=== PATIENT | female | born 2000 | race Caucasian/White ===

== ENCOUNTER 2023-01-17 13:41 | Emergency (ER) | payer MEDICAID, SELFPAY ==
[2023-01-17 13:51] VITALS: BP 109/61; PULSE 87; RESP 16; TEMP 36.7; O2SAT 100
--- NOTE | 2023-01-17 14:11 | ED.FEMALEGU ---
HPI - Female Genitourinary General Chief complaint: Nausea/Vomiting/Diarrhea Stated complaint: Weakness/Fatique/Dehydrated Time Seen by Provider: 01/17/23 13:55 Source: patient Mode of arrival: ambulatory Limitations: no limitations History of Present Illness HPI Narrative: Jo is a 22-year-old female patient presenting to the clinic today with complaints of weakness, fatigue, possible dehydration, nausea, vomiting, and vaginal discharge. Patient reports that she is 11 weeks and has been having a lot of nausea and vomiting. She denies any fever or chills. States she that she is having some burning with urination and discomfort with wiping. Is having a lot of yellow vaginal discharge. Related Data Home Medications Medication Instructions Recorded Confirmed No Home Medications 01/17/23 01/17/23 Allergies Allergy/AdvReac Type Severity Reaction Status Date / Time No Known Allergies Allergy Verified 01/17/23 14:03 Review of Systems Review of Systems: Pertinent positives per HPI. Patient denies any fever, chills, rash, headache, visual changes, dizziness, cough, shortness of breath, chest pain, palpitations, nausea, vomiting, diarrhea, constipation, abdominal pain, or any urinary issues. PMFSH Comments At the time of my signature, I reviewed and agree with the nursing past medical, surgical, social, and family history. There is no relevant family history pertinent to the patient complaint. Exam Narrative: General: Well-developed, well nourished, in no apparent distress Head: Normocephalic, atraumatic Eyes: Pupils equally round and reactive to light bilaterally, EOM intact, sclera and conjunctive clear, no discharge, lids normal Ears: TMs intact and clear, ear canals clear, no drainage, grossly hearing normal. Nose: Nares patent, no discharge, no inflammation, no sinus tenderness. Mouth: Oral pharynx without lesions or masses, good dentition, MMM. Neck: Supple, trachea midline, no enlargement of anterior or posterior cervical nodes, no thyroid masses or goiter palpable. Cardio: Regular rate and rhythm, s1 and s2 normal, no murmur appreciated. Resp: Clear to auscultation bilaterally, no rhonchi, rales, wheezing or rubs General: Well-developed, well nourished, in no apparent distress. Abdomen: Soft, pliable, bowel sounds present in all quadrants, mildly tender to palpation over the suprapubic bladder, no organomegly, no CVAT tenderness. Course Course Emergency Course: Portions of this record may have been created with voice recognition software. Level of Care: Express Care Visit Vital Signs Vital signs: Vital Signs Temperature 36.7 C 01/17/23 13:51 Pulse Rate 87 01/17/23 13:51 Respiratory Rate 16 01/17/23 13:51 Blood Pressure 109/61 01/17/23 13:51 Pulse Oximetry 100 01/17/23 13:51 Oxygen Delivery Room Air 01/17/23 13:51 Temperature 36.7 C 01/17/23 13:51 Pulse Rate 87 01/17/23 13:51 Respiratory Rate 16 01/17/23 13:51 Blood Pressure 109/61 01/17/23 13:51 Pulse Oximetry 100 01/17/23 13:51 Oxygen Delivery Room Air 01/17/23 13:51 Vital signs reviewed Transfer Transfered to: [facility] Transportation: Other (Private car) Transfer rationale: Dehydration, vaginal discharge, 11 weeks , nausea and vomiting, weakness Accepting physician: Dr. Sanchez Transfer comments: via private car MDM - Female Genitourinary MDM Narrative Medical decision making narrative: At the time of visit patient is resting comfortably on the exam table. Recommend transfer to the ED for fluids, labs, and any further evaluation per ER provider. Patient is agreeable to this. Contacted Dr. Sanchez at [facility] and report was given for continuity care and she accepts patient for transfer. Patient will be transferred via private car Differential Diagnosis Differential diagnosis: Likely urinary tract infection, bacterial vaginosis, cystitis and other (Sexual
== END 2023-01-17 14:11 | disposition short-term general hospital (02) ==
PROVIDERS: Emergency Provider Nurse Practitioner Family
DX: O21.9 Vomiting of pregnancy, unspecified (principal); Z3A.11 11 weeks gestation of pregnancy; O99.281 Endocrine, nutritional and metabolic diseases complicating pregnancy, first trimester; E86.0 Dehydration; O99.891 Other specified diseases and conditions complicating pregnancy; N89.8 Other specified noninflammatory disorders of vagina; R53.1 Weakness
CPT/HCPCS: 81003; 87086; 87088; 87147; 99203; G0463

== ENCOUNTER 2023-01-17 14:43 | Emergency (ER) | payer MEDICAID, SELFPAY ==
[2023-01-17 14:50] VITALS: BP 116/46; PULSE 96; RESP 16; TEMP 36.6; O2SAT 100
--- NOTE | 2023-01-17 15:04 | ED.NAVMDI ---
HPI - Nausea/Vomiting/Diarrhea General Chief complaint: Nausea/Vomiting/Diarrhea Stated complaint: 11 weeks / n/v Time Seen by Provider: 01/17/23 14:55 History of Present Illness HPI Narrative: Pt is 11 weeks and has been having persistent vomiting numerous times a day. Pt has ketones in her urine per OB and was sent to ER for IVF. Pt has no vaginal bleeding or urinary symptoms. Related Data Allergies Allergy/AdvReac Type Severity Reaction Status Date / Time No Known Allergies Allergy Verified 01/17/23 15:14 Review of Systems Review of Systems: All systems reviewed & are unremarkable except as noted in HPI and below Exam Const: General: healthy appearing and no acute distress Nutritional Appearance: well nourished Orientation/consciousness: patient oriented x3 Limitations: no limitations HENMT: Mouth: Yes dry mucous membranes Eyes: Conjunctivae: conjunctivae normal Pupils: Equal, round and reactive pupils present EOM: EOMs intact bilaterally Neck: Neck: normal visual inspection and no lymphadenopathy Resp: Effort & Inspection: normal respiratory effort Auscultation: clear to auscultation bilaterally Cardio: Rate: regular rate Rhythm: regular rhythm GI: GI Palp: Yes Soft to palpation Auscultation: normal bowel sounds Skin: General skin exam: normal color Wounds: no wounds Neuro: General: patient oriented x3, moves all extremities and no focal motor deficits Speech: normal speech Extrem: General: normal to inspection and no clubbing, cyanosis or edema Psych: Mental Status: mental status grossly normal Affect: normal affect Attitude: cooperative Course Vital Signs Vital signs: Vital Signs Temperature 98 F 01/17/23 14:50 Pulse Rate 96 01/17/23 14:50 Respiratory Rate 16 01/17/23 14:50 Blood Pressure 116/46 L 01/17/23 14:50 Pulse Oximetry 100 01/17/23 14:50 Temperature 98 F 01/17/23 14:50 Pulse Rate 94 01/17/23 16:42 Respiratory Rate 18 01/17/23 16:42 Blood Pressure 101/69 01/17/23 16:42 Pulse Oximetry 99 01/17/23 16:42 MDM - Nausea/Vomiting/Diarrhea MDM Narrative Medical decision making narrative: pt likely dehydrated from hyperemesis gravidarum needs IVF and reglan. labs look fine pt feels much better after fluids and reglan and wants to go home Lab Data 01/17/23 15:12 01/17/23 15:12 Labs: Lab Results 01/17/23 Range/Units 15:12 WBC 11.0 H (4.5-10.0) K/mm3 RBC 4.46 (4.2-5.4) M/mm3 Hgb 11.4 L (12.0-15.0) g/dL Hct 35.7 L (37.0-47.0) % MCV 80.0 (80-100) fl MCH 25.6 L (26-34) pg MCHC 31.9 L (32-36) g/dl RDW 15.3 H (11.5-14.5) % Plt Count 352 (150-375) k/mm3 MPV 10.2 (7.4-10.4) fl Immature Gran % (Auto) 0.4 (0-0.5) % Neut % (Auto) 74.8 H (45.5-73.1) % Lymph % (Auto) 19.2 (18.3-44.2) % Overton % (Auto) 3.6 (2.6-8.5) % Eos % (Auto) 1.5 (0-4.4) % Baso % (Auto) 0.5 (0.2-1.2) % Lymph # (Auto) 2.12 (0.9-3.2) K/mm3 Overton # (Auto) 0.4 (0.1-0.6) K/mm3 Eos # (Auto) 0.2 (0-0.3) K/mm3 Baso # (Auto) 0.1 (0.0-0.1) K/mm3 Abs Immat Gran (auto) 0.04 H (0.00-0.031) K/mm3 Absolute Neuts (auto) 8.2 H (1.3-6.7) K/mm3 Absolute Nucleated RBC 0.0 (0.0-0.012) K/mm3 Nucleated RBC % 0.0 (0.0-0.2) % Sodium 134 L (137-145) mmol/L Potassium 3.3 L (3.4-5.0) mmol/L Chloride 103 (98-107) mmol/L Carbon Dioxide 23 (22-30) mmol/L Anion Gap 8 (8-16) mmol/L BUN 7 (7-17) mg/dL Creatinine 0.40 L (0.7-1.0) mg/dL Estim Creat Clear Calc 171 ml/min Estimated GFR > 60 (59 - ) Glucose 104 (65-110) mg/dL Calcium 8.8 (8.4-10.2) mg/dL Total Bilirubin 0.4 (0.2-1.3) mg/dL AST 19 (14-36) U/L ALT 14 (6-35) U/L Alkaline Phosphatase 59 (38-126) U/L Total Protein 7.0 (6.3-8.2) g/dL Albumin 4.3 (3.5-5.1) g/dL Discharge Plan Discharge Clinical Impression: Hyperemesis gravidarum Patient Disposition: Home, Self-Care
[2023-01-17] MEDS: METOCLOPRAMIDE HCL INJ 10 MG/2 ML VIAL IV PUSH (15:18)
[2023-01-17] MEDS: DEXTROSE 5%/LACTATED RINGERS 1,000 ML 999 ML IV CONT (15:19)
[2023-01-17 15:24] LABS: Basophils Absolute Auto 0.1 K/mm3 (0.0-0.1); Basophils Percent Auto 0.5 % (0.2-1.2); Eosinophils Absolute Auto 0.2 K/mm3 (0-0.3); Eosinophils Percent Auto 1.5 % (0-4.4); Hematocrit 35.7 % (37.0-47.0); Hemoglobin 11.4 g/dL (12.0-15.0); Immature Granulocyte Absolute 0.04 K/mm3 (0.00-0.031); Immature Granulocyte Percent A 0.4 % (0-0.5); Lymphocytes Absolute Auto 2.12 K/mm3 (0.9-3.2); Lymphocytes Percent Auto 19.2 % (18.3-44.2); Mean Corpuscular HGB Conc 31.9 g/dl (32-36); Mean Corpuscular Hemoglobin 25.6 pg (26-34); Mean Platelet Volume 10.2 fl (7.4-10.4); Monocytes Absolute Auto 0.4 K/mm3 (0.1-0.6); Monocytes Percent Auto 3.6 % (2.6-8.5); Neutrophils Absolute Auto 8.2 K/mm3 (1.3-6.7); Neutrophils Percent Auto 74.8 % (45.5-73.1); Platelet Count Result 352 k/mm3 (150-375); Red Blood Count 4.46 M/mm3 (4.2-5.4); Red Cell Distribution Width 15.3 % (11.5-14.5)
[2023-01-17 15:37] LABS: Alanine Aminotransferase 14 U/L (6-35); Albumin Level 4.3 g/dL (3.5-5.1); Alkaline Phosphatase 59 U/L (38-126); Anion Gap 8 mmol/L (8-16); Aspartate Amino Transferase 19 U/L (14-36); Bilirubin,Total 0.4 mg/dL (0.2-1.3); Blood Urea Nitrogen 7 mg/dL (7-17); Calcium 8.8 mg/dL (8.4-10.2); Carbon Dioxide 23 mmol/L (22-30); Chloride 103 mmol/L (98-107); Estimated CRCL calculation 171 ml/min; Estimated Glomerular Filt Rate > 60; Glucose 104 mg/dL (65-110); Potassium 3.3 mmol/L (3.4-5.0); Sodium 134 mmol/L (137-145)
[2023-01-17 16:42] VITALS: BP 101/69; PULSE 94; RESP 18; O2SAT 99
== END 2023-01-17 16:46 | disposition home or self-care (01) ==
PROVIDERS: Emergency Provider Emergency Medicine
DX: O21.0 Mild hyperemesis gravidarum (principal); Z3A.11 11 weeks gestation of pregnancy
CPT/HCPCS: 36415; 80053; 85025; 96361; 96374; 99284; J2765; J7121

== ENCOUNTER 2023-03-09 12:58 | Emergency (ER) | payer MEDICAID, SELFPAY ==
[2023-03-09 13:08] VITALS: BP 113/58; PULSE 89; RESP 16; TEMP 36.8; O2SAT 100
--- NOTE | 2023-03-09 13:30 | ED.DIZZY ---
HPI - Dizziness General Chief Complaint: Dizziness Stated Complaint: Dizziness/Blurried Vision Time Seen by Provider: 03/09/23 13:01 Source: patient Mode of arrival: ambulatory Limitations: no limitations History of Present Illness HPI Narrative: Patient is a 22-year-old female having frontal headache, intermittent blurred vision, and dizziness when moving around. Patient has not taken anything for her headache that she has had for 3 days. States she does not like to take medication when . Does occasionally take Zofran for nausea. States she did throw up this morning but she throws up every morning. Was seen for similar complaint 01/17. Denies any sycope, heart palpitations, weakness, numbness or tingling. Related Data Home Medications Medication Instructions Recorded Confirmed 03/09/23 ondansetron 4 mg disintegrating mg 03/09/23 tablet Allergies Allergy/AdvReac Type Severity Reaction Status Date / Time No Known Allergies Allergy Verified 03/09/23 13:06 Review of Systems Review of Systems: All systems reviewed & are unremarkable except as noted in HPI and below Constitutional: Constitutional: Denies body ache(s), Denies chills, Denies fatigue, Denies fever(s), Reports headache(s), Denies malaise and Denies weakness Eyes: Eyes: Reports blurry vision, Denies irritation and Denies loss of vision ENT: Denies otalgia, Reports headache(s), Denies nasal discharge, Denies sinus pain and Denies sore throat Cardiovascular: Cardiovascular: Denies chest pain, Denies irregular heart rhythm and Denies dyspnea Respiratory: Respiratory: Denies dyspnea Gastrointestinal: Gastrointestinal: Denies abdominal pain, Denies melena, Denies hematochezia, Denies diarrhea, Denies nausea and Denies vomiting Musculoskeletal: Musculoskeletal: Denies back pain, Denies myalgias and Denies arthralgias Integumentary/Breasts: Skin/Breast: Denies pruritus and Denies rash Neurologic: Reports dizziness, Denies syncope, Reports headache(s), Denies loss of vision, Denies numbness, Denies tingling, Denies paresthesias and Denies weakness Psychiatric: Psychiatric: Reports no additional psychiatric complaints Endocrine: Endocrine: Denies fatigue PMFSH Comments At time of signature, agree with nursing past medical, surgical, social and family history. There is no relevant family history pertinent to the presenting complaint. Exam Const: General: cooperative, healthy appearing, comfortable, no acute distress and well nourished Nutritional Appearance: well nourished Orientation/consciousness: patient oriented x3 Limitations: no limitations HENMT: Head: normal to inspection, normocephalic and atraumatic Ears: hearing grossly normal bilaterally and external ears normal Face/Nose/Sinus: Normal external nose present, normal facial exam and face symmetric Face and sinus: normal facial exam and face symmetric Mouth: Yes lip normal Eyes: General: appearance normal, both eyes and all related structures Alignment and Position: alignment normal and position normal Periorbital: periorbital findings normal Eyelids: eyelids normal Pupils: Equal, round and reactive pupils present EOM: EOMs intact bilaterally Neck: Neck: normal visual inspection, full ROM and supple Chest: Chest palpation & inspection: normal inspection of the chest Resp: Effort & Inspection: normal respiratory effort and able to speak in complete sentences Auscultation: clear to auscultation bilaterally, no crackles, no rales, no rhonchi and no wheezes Cardio: Rate: regular rate Rhythm: regular rhythm Heart sounds: S1 normal heart sound present and S2 normal heart sound present GI: Inspection: normal to inspection : General: Yes no CVA tenderness Skin: General skin exam: normal color and no rashes or lesions noted Neuro: General: patient oriented x3 and moves all extremities Cranial nerves: Yes Equal, round and reactive pupils present Speech: nor
[2023-03-09 13:41] VITALS: BP 103/50; PULSE 80
[2023-03-09 13:43] VITALS: BP 109/54; PULSE 80
[2023-03-09 13:45] VITALS: BP 111/51; PULSE 104
--- NOTE | 2023-03-09 14:02 | PC.NURSE ---
multiple ua attempts done by 2 rn with newe strips and unable to get results from [facility]. turner off aware. luekocytes visually immediately positive with every test. qc done x2.
--- NOTE | 2023-03-09 14:04 | PC.NURSE ---
ua results done manually glucose negative, biirubin negative, ketone negative, specific gravity 1.025, blood 1+, ph 6.0, protein +, uro 0.2, nitrite +, and leukocyte 3+
== END 2023-03-09 14:12 | disposition home or self-care (01) ==
PROVIDERS: Emergency Provider Nurse Practitioner Family
DX: O23.40 Unspecified infection of urinary tract in pregnancy, unspecified trimester (principal); N39.0 Urinary tract infection, site not specified; Z3A.00 Weeks of gestation of pregnancy not specified; O99.891 Other specified diseases and conditions complicating pregnancy; I95.1 Orthostatic hypotension; R51.9 Headache, unspecified; Z20.822 Contact with and (suspected) exposure to COVID-19
CPT/HCPCS: 81003; 87077; 87086; 87088; 87426; 87804; 99213; C9803; G0463

== ENCOUNTER 2023-04-15 17:10 | Emergency (ER) | payer MEDICAID, SELFPAY ==
--- NOTE | 2023-04-15 17:21 | ED.URI ---
HPI - URI/Sore Throat General Chief Complaint: Headache Stated Complaint: bodyaches,headache Time Seen by Provider: 04/15/23 18:00 Source: patient and RN notes reviewed Mode of arrival: ambulatory Limitations: no limitations History of Present Illness HPI Narrative: 22-year-old female who is 20 per weeks presents with concern for body aches, sweats, chills, headache, cough that started last night. She reports other members of her family including her significant other has similar symptoms. She has not taken any medications for her symptoms. MD elicited complaint: cough Related Data Home Medications Medication Instructions Recorded Confirmed See Rx Instructions .Route .COMPLEX 03/09/23 04/15/23 ondansetron 4 mg disintegrating See Rx Instructions .Route .COMPLEX 03/09/23 04/15/23 tablet Allergies Allergy/AdvReac Type Severity Reaction Status Date / Time No Known Allergies Allergy Verified 04/15/23 17:39 Review of Systems Review of Systems: CONSTITUTIONAL: Reports malaise, chills, sweats EYES: Denies visual changes, redness, or discharge. ENT: Reports rhinorrhea, congestion. Denies sinus pain, otalgia and sore throat. CARDIOVASCULAR: Denies chest pain, palpitations, or edema. RESPIRATORY: Reports cough. Denies dyspnea. GASTROINTESTINAL: Denies abdominal pain, nausea, vomiting, diarrhea SKIN: Denies rash or itching. MUSCULOSKELETAL: Reports myalgia. NEUROLOGIC: Reports headache. All systems reviewed & are unremarkable except as noted in HPI and below PMFSH Comments At time of signature, agree with nursing past medical, surgical, social and family history. There is no relevant family history pertinent to the presenting complaint Exam Narrative: GENERAL: Well-appearing, well-nourished, and in no acute distress. HEAD: Normocephalic EYES: PERRLA, conjunctivae clear ENT: Nares clear. Mucous membranes moist. TM pearly morales with dull light reflex bilaterally; no tragal tenderness. Oropharynx not erythematous without lesions. Tonsils not enlarged and without exudate, no drooling, no hoarseness, no trismus, uvula midline. NECK: Supple. No lymphadenopathy CHEST: Clear to auscultation, breath sounds equal. No wheezing, rhonchi, rales, or stridor. No respiratory distress, speaks in full sentences. HEART: Regular rate and rhythm. No murmur heard. SKIN: Warm, dry, no rash. NEURO: Alert and oriented x3. PSYCH: Normal mood and affect Course Course Emergency Course: Patient is aware of diagnosis, understands and agrees to treatment plan. Anticipatory guidance given. Patient agrees to follow-up as directed and is aware of reasons to seek care at the emergency department. Portions of this record may have been created with voice recognition software Level of Care: Express Care Visit Vital Signs Vital signs: Vital Signs Temperature 98.9 F 04/15/23 17:45 Pulse Rate 105 H 04/15/23 17:45 Respiratory Rate 16 04/15/23 17:45 Blood Pressure 105/52 L 04/15/23 17:45 Pulse Oximetry 99 04/15/23 17:45 Oxygen Delivery Room Air 04/15/23 17:45 Temperature 98.9 F 04/15/23 17:45 Pulse Rate 105 H 04/15/23 17:45 Respiratory Rate 16 04/15/23 17:45 Blood Pressure 105/52 L 04/15/23 17:45 Pulse Oximetry 99 04/15/23 17:45 Oxygen Delivery Room Air 04/15/23 17:45 Reviewed. MDM - URI/Sore Throat MDM Narrative Medical decision making narrative: Differential diagnosis considered: Cortes virus, strep pharyngitis, allergic rhinitis, upper respiratory tract infection, sinusitis, rhinosinusitis, nasopharyngitis. viral pharyngitis, otitis media, otitis externa, pneumonia, bronchitis, viral cough syndrome, viral syndrome, and influenza. Exam findings show no acute concerns or changes; patient is non-toxic appearing and is in no distress. Patient is appropriate for outpatient treatment and follow-up. Lab Data Attestation: I reviewed the patient's lab results. [facility]
[2023-04-15 17:45] VITALS: BP 105/52; PULSE 105; RESP 16; TEMP 37.2; O2SAT 99
== END 2023-04-15 18:44 | disposition home or self-care (01) ==
PROVIDERS: Emergency Provider Nurse Practitioner; PCP Family Medicine
DX: O98.512 Other viral diseases complicating pregnancy, second trimester (principal); B34.9 Viral infection, unspecified; Z3A.20 20 weeks gestation of pregnancy; Z20.822 Contact with and (suspected) exposure to COVID-19
CPT/HCPCS: 87081; 87426; 87880; 99213; C9803; G0463